=== PATIENT | female | born 1955 | race Hispanic/Latino ===

== ENCOUNTER 2020-04-06 | Emergency (ER) | payer MEDICARE ==
[~2020-04-06] VITALS: Ht 157.5 cm; Wt 69.9 kg
[2020-04-06] MEDS ORDERED: SODIUM CHLORIDE 0.9% 1000ML 1,000 ML IV STA (00:55)
[2020-04-06] MEDS ORDERED: ONDANSETRON HCL INJ 2MG/ML 2ML 2 MG/ML VIAL IV STA (00:55)
[2020-04-06] MEDS ORDERED: ZOFRAN4 MG SL (00:59)
[2020-04-06] MEDS ORDERED: SODIUM CHLORIDE 0.9% 1000ML 1,000 ML ONE (01:19)
[2020-04-06] MEDS ORDERED: ONDANSETRON HCL INJ 2MG/ML 2ML 2 MG/ML VIAL ONE (01:19)
== END 2020-04-06 02:13 | disposition home or self-care (01) ==
LOC: FSED 00:56
DX: R53.1 Weakness (principal); R11.0 Nausea; E11.65 Type 2 diabetes mellitus with hyperglycemia; I10 Essential (primary) hypertension
CPT/HCPCS: 80053; 85025; 99283; J2405; J7030

== ENCOUNTER 2020-07-23 19:04 | Emergency (ER) | payer MEDICARE ==
[~2020-07-23] VITALS: Ht 157.5 cm; Wt 69.9 kg
[~2020-07-23 19:04] MED LIST: ZOFRAN4 MG SL
== END 2020-07-23 21:00 | disposition home or self-care (01) ==
LOC: FSED 19:30
DX: S60.221A Contusion of right hand, initial encounter (principal); W22.8XXA Striking against or struck by other objects, initial encounter; Y92.008 Other place in unspecified non-institutional (private) residence as the place of occurrence of the external cause; I10 Essential (primary) hypertension; E11.9 Type 2 diabetes mellitus without complications
CPT/HCPCS: 99283

== ENCOUNTER 2023-12-18 15:59 | Emergency (ER) | payer MEDICARE ==
[~2023-12-18] VITALS: Ht 154.9 cm; Wt 68.0 kg
[~2023-12-18 15:59] MED LIST changes: +LISINOPRIL40 MG; +METFORMIN HCL500 M2 PO; +METHOCARBAMOL500 MG PO
[2023-12-18] MEDS ORDERED: TYLENOL325 MG PO (16:33)
[2023-12-18] MEDS ORDERED: IBUPROFEN200 MG PO (16:33)
[2023-12-18 16:37] VITALS: PULSE 83; RESP 16; TEMP 97.3
[2023-12-18] MEDS: IBUPROFEN 600 MG TAB PO ONE (18:04)
[2023-12-18] MEDS: ACETAMINOPHEN 325 MG TAB PO ONE (18:04)
[2023-12-18 19:27] VITALS: BP 132/72; PULSE 71; RESP 18; TEMP 98.2; O2SAT 100
== END 2023-12-18 17:33 | disposition home or self-care (01) ==
LOC: FSED 16:08
DX: S43.491A Other sprain of right shoulder joint, initial encounter (principal); W01.0XXA Fall on same level from slipping, tripping and stumbling without subsequent striking against object, initial encounter; Y93.01 Activity, walking, marching and hiking; Y92.89 Other specified places as the place of occurrence of the external cause; I10 Essential (primary) hypertension; E11.9 Type 2 diabetes mellitus without complications
CPT/HCPCS: 99284

== ENCOUNTER 2024-04-15 15:53 | Emergency (ER) | payer MEDICARE ==
[~2024-04-15] VITALS: Ht 152.4 cm; Wt 60.6 kg
[~2024-04-15 15:53] MED LIST changes: +IBUPROFEN200 MG PO; +TYLENOL325 MG PO
[2024-04-15] MEDS: SODIUM CHLORIDE 0.9% 1000ML 1,000 ML IV ONE (16:59)
[2024-04-15] MEDS: ACETAMINOPHEN 325 MG TAB PO ONE (16:59)
[2024-04-15] MEDS: KETOROLAC TROMETHAMINE 30 MG/ML VIAL IV STA (17:00)
[2024-04-15 17:31] VITALS: PULSE 100; RESP 16; TEMP 97.6; O2SAT 97
== END 2024-04-15 18:05 | disposition home or self-care (01) ==
LOC: FSED 16:05
DX: R05.9 Cough, unspecified (principal); B34.9 Viral infection, unspecified; E86.0 Dehydration; E86.1 Hypovolemia; R51.9 Headache, unspecified; Z11.52 Encounter for screening for COVID-19
CPT/HCPCS: 0223U; 80053; 81003; 83518; 85025; 86308; 87040; 87400; 87420; 96374; 99284; J1885; J7030